=== PATIENT | male | born 1985 | race Caucasian/White ===

== ENCOUNTER 2020-06-05 09:38 | Emergency (ER) | payer BC, SELFPAY ==
[2020-06-05 09:45] VITALS: BP 140/84; PULSE 84; RESP 17; TEMP 36.7; O2SAT 100; BMI 30.7
--- NOTE | 2020-06-05 09:49 | XR_ITS ---
PROCEDURE: XR SHOULDER RT MIN 2V CLINICAL INDICATION: pain Pain with limited range of motion COMPARISON: XR CHEST 2V from 06/05/2020 FINDINGS: No fracture or dislocation. No lytic or blastic change. There is normal mineralization. The joint spaces are well-preserved. No significant degenerative/arthritic changes. No erosive changes evident. Other findings:The glenohumeral joint and acromioclavicular joint has an unremarkable appearance. There is minimal exostosis of the distal clavicle superiorly versus a a extra ossicle. Also noted is a moderate right-sided pneumothorax. Pneumothorax measures approximately 5 cm in IMPRESSION: 1. Negative shoulder. 2. Moderate right-sided pneumothorax. Dictated by: Kendall Muro MD 06/05/2020 12:02 Electronically signed by Kendall Muro MD in [place] 06/05/2020 12:02
--- NOTE | 2020-06-05 09:53 | HMH.EDGENADL ---
ED Disposition Clinical Impression: Spontaneous pneumothorax Disposition: Left Against Medical Advice Condition on Discharge: Fair Instructions: DI for Pneumothorax Additional Instructions: Return to the emergency room tomorrow for reevaluation and repeat chest x-ray. Return to the emergency room immediately if worsening shortness of breath, severe pain, or passing out. May take ibuprofen for pain. Avoid any strenuous activity. Referrals: PCP,No [Primary Care Provider] - Forms: Work/School Release - Critical Care Critical Care Time: No Attestation: On 06/05/20, the high probability of a clinically significant, sudden or life threatening deterioration of the following system(s) required my full and direct attention, intervention and personal management. The time I documented below is in addition to time spent performing reported procedures but includes the following listed in this critical care notation. Medical Decision Making - [place] Inquiry Pt receiving controlled substance: No Vital Signs: 06/05/20 09:45 06/05/20 10:01 06/05/20 10:33 Temperature 98.1 F Temperature Source Oral Pulse Rate Pulse Rate [Radial] 84 84 71 Respiratory Rate 17 Blood Pressure Blood Pressure [Right Arm] 140/84 135/77 128/82 Blood Pressure Mean [Right Arm] 102 96 97 Blood Pressure Source Blood Pressure Source [Right Arm] Automatic Cuff Automatic Cuff Automatic Cuff Blood Pressure Position Blood Pressure Position [Right Arm] Sitting Sitting Sitting 02 Sat by Pulse Oximetry 100 98 97 Oxygen Delivery Method Room Air Room Air Room Air 06/05/20 11:30 Temperature 98.3 F Temperature Source Oral Pulse Rate 85 Pulse Rate [Radial] Respiratory Rate 16 Blood Pressure 153/101 H Blood Pressure [Right Arm] Blood Pressure Mean [Right Arm] Blood Pressure Source Automatic Cuff Blood Pressure Source [Right Arm] Blood Pressure Position Sitting Blood Pressure Position [Right Arm] 02 Sat by Pulse Oximetry Oxygen Delivery Method Room Air - Radiology Data #1 Image(s): Chest, Shoulder Image Reviewed: Yes I reviewed the patient's radiology image Shoulder: No fracture or dislocation. No acute process. Chest: Right sided pneumothorax. Measures 3 cm at the base, 4 cm at the apex - Physician Consults Physician Consulted: Bladimir Time: 10:47 Reason -: Surgical Eval/Care Comment/Response: He agrees to come see the patient in the emergency room, but he is involved in his surgery and it will be a couple of hours. Hold patient in the emergency room. We have also called the patient's mother who is coming to the emergency room to see him and she may be able to talk to him and have him change his mind. Medical Decision Narrative: 10:55 AM: The patient refuses to stay in the emergency room and is going to sign out AGAINST MEDICAL ADVICE. He was advised that if his pneumothorax worsens it can be life-threatening (can cause ). 3 different persons in the emergency department explained to the patient that he could potentially from this condition if it were to progress. He understands this and still wants to sign out. He refuses chest tube placement. He refuses catheter placement, which would be less invasive than a thoracostomy tube. I also gave him the option of waiting a couple of hours to see Dr. Garrison, at that time a repeat chest x-ray could be performed to see if his pneumothorax has worsened at all. He even refuses this option and insists on leaving. His mother is present and is unable to convince him otherwise. Advised him to return tomorrow to the emergency room to have a repeat chest x-ray done and he is agreeable to that. General Adult HPI - General Chief complaint: PAIN Stated complaint: right shoulder pain Time Seen by Provider: 06/05/20 09:53 Mode of Arrival: Ambulatory Limitations: No Limitations Description of Symptoms (Recalled from ER Triage Doc. by RN): Woke up to right shoulder
[2020-06-05 10:01] VITALS: BP 135/77; PULSE 84; O2SAT 98
--- NOTE | 2020-06-05 10:02 | XR_ITS ---
PROCEDURE: XR CHEST 2V CLINICAL HISTORY: CP chest pain COMPARISON: No exams were available for comparison FINDINGS: The cardiomediastinal silhouette and pulmonary vascularity are within normal limits. There is a moderate-sized right pneumothorax measuring 4 cm in with at the lung apex. Pneumothorax involves at least 30 percent of the total lung volume. The upper mediastinum is slightly deviated toward the left however, the patient is slightly rotated. Right hemidiaphragm may be slightly flattened. No lobar consolidation or collapse. IMPRESSION: There is a moderate-sized right pneumothorax with suggestion of some minimal tension with minimal flattening of the right hemidiaphragm and questionable mediastinal deviation toward the left. The ER physician was aware of these findings. Dictated by: Kendall Muro MD 06/05/2020 12:05 Electronically signed by Kendall Muro MD in [place] 06/05/2020 12:05
[2020-06-05 10:33] VITALS: BP 128/82; PULSE 71; O2SAT 97
--- NOTE | 2020-06-05 10:37 | PC.NURSE ---
notified patient of results. Moving patient to room 2 at this time
--- NOTE | 2020-06-05 11:05 | PC.NURSE ---
notified pt of his condition and we moved patient to room 2. Pt kept saying that he couldn't believe this and he did not want any procedure done at this time. advised he would speak with the surgeon fire protection inspector to see if there was something else that could be done. Pt was adamant that he was not having any procedure done. We asked the patient to move over to room 2, he agreed, we had him stop at the nurses station so MD could show him his chest xray and explain everything again to him. Pt continued to shake his head and say this just doesn't happen, I'm not getting anything done I am leaving. spoke with Dr. Garrison who was in the OR and DR. Garrison advised he was in a case and would come down and see the patient when he finished. Pt mother came in at this time and we explained to the mother what was going on, mother was tearful and asking patient to please stay and have something done. Pt adamant that he was not staying here in the ER and would maybe come back this afternoon or tomorrow . He advised that if he started to get worse he would come back, Dr. Pereira asked the patient if he would at least come back to the ED tomorrow for revaluation and pt was agreeable to that but advised that he was leaving and would sign an AMA form because he did not want anything done. Explained to patient that this could potentially be a life threatening situation and could continue to get worse. Pt only response was ok . Mother still tearful trying to reason with patient about at least staying and waiting to speak with the surgeon. Pt advises he was not staying and wanted to sign the AMA form. Pt signed AMA form, put in discharge instructions for the patient and we explained to his mother what signs and symptoms she needed to watch for in the event the patient began to worsen. Also explained to patient what he needed to watch for and he advised he understood. Called OR and notified DR. Garrison that pt had signed out AMA at this time.
[2020-06-05 11:30] VITALS: BP 153/101; PULSE 85; RESP 16; TEMP 36.8; O2SAT 98
== END 2020-06-05 11:31 | disposition left against medical advice (07) ==
PROVIDERS: Emergency Provider Emergency Medicine
DX: J93.11 Primary spontaneous pneumothorax (principal)
CPT/HCPCS: 71046; 73030; 99282

== ENCOUNTER 2020-06-20 13:03 | Emergency (ER) | payer BC, SELFPAY ==
[2020-06-20 13:30] VITALS: BP 158/102; PULSE 83; RESP 15; TEMP 36.8; O2SAT 98; BMI 30.7
--- NOTE | 2020-06-20 13:33 | XR_ITS ---
PROCEDURE: XR CHEST 2V CLINICAL HISTORY: chest pain History of pneumothorax COMPARISON: CR XR CHEST 2V from 06/05/2020 FINDINGS: There is a small right apical pneumothorax with the apical pleural distance measuring approximately 7 mm. Previously this was 43 mm on 06/05/2020. The left lung is clear. Unremarkable cardiovascular structures. No acute bony abnormalities. IMPRESSION: Small right apical pneumothorax Mariela notified of the above findings in the ER 06/20/2020 at 2:04 p.m. Kendall Blanc MD 06/20/2020 14:04 Kendall Muro MD in [place] 06/20/2020 14:04
[2020-06-20 14:47] VITALS: BP 147/110; PULSE 78; O2SAT 99
--- NOTE | 2020-06-20 16:58 | HMH.EDRECH ---
ED Disposition Clinical Impression: Pneumothorax Qualifiers: Pneumothorax type: spontaneous, primary Qualified Code(s): J93.11 - Primary spontaneous pneumothorax Disposition: Home, Self-Care Condition on Discharge: Fair Instructions: DI for Pneumothorax Additional Instructions: We note an improved CXR with Apical pleural distance of 7 mm as against 43 mm previously. you will be discharged home to rest for 2 more days and comeback for a repeat chest Xray Referrals: PCP,No [Primary Care Provider] - Time of Disposition: 17:08 - Critical Care Critical Care Time: No Attestation: On 06/20/20, the high probability of a clinically significant, sudden or life threatening deterioration of the following system(s) required my full and direct attention, intervention and personal management. The time I documented below is in addition to time spent performing reported procedures but includes the following listed in this critical care notation. Medical Decision Making - Medical Records Medical records reviewed: Yes: I reviewed the patient's medical records. MR Comment: Pt reports he was here 2 weeks ago for right sided pain, was told he had a collapsed lung, and refused a chest tube at that time. Reports he was told to come back for a followup chest xray. Much improved CXR with Apical pleural distance of 7 mm as against 43 mm previously. Patient will be discharged home to rest for 2 more days and comeback for a repeat chest Xray - [place] Inquiry Pt receiving controlled substance: No Vital Signs: 06/20/20 13:30 06/20/20 14:47 Temperature 98.3 F Temperature Source Oral Pulse Rate [Right Brachial] 83 78 Respiratory Rate 15 Blood Pressure [Right Arm] 158/102 H 147/110 H Blood Pressure Mean [Right Arm] 120 122 Blood Pressure Source [Right Arm] Automatic Cuff Automatic Cuff Blood Pressure Position [Right Arm] Sitting Supine 02 Sat by Pulse Oximetry 98 99 Oxygen Delivery Method Room Air Room Air Recheck HPI - General Chief Complaint: Recheck/Abnormal Lab/Rx Stated Complaint: xray Time Seen by Provider: 06/20/20 15:58 Mode of Arrival: Ambulatory Source of Information: Patient Limitations: No Limitations Description of Symptoms (Recalled from ER Triage Doc. by RN): Pt reports he was here 2 weeks ago for right sided pain, was told he had a collapsed lung, and refused a chest tube at that time. Reports he was told to come back for a followup chest xray. - History of Present Illness HPI narrative: Pt reports he was here 2 weeks ago for right sided pain, was told he had a collapsed lung, and refused a chest tube at that time. Reports he was told to come back for a followup chest xray. MD complaint: other Onset/Timin Initial visit (ago): week(s) Initial visit for: other Description of abnormal result: small pneumothorax Symptoms since prior visit: no new symptoms, improved Associated symptoms: none - Related Data Home Medications Medication Instructions Recorded Confirmed No Known Home Medications 06/20/20 06/20/20 Allergies Allergy/AdvReac Type Severity Reaction Status Date / Time No Known Allergies Allergy Verified 06/20/20 13:35 [facility] History - Hepatitis A Screen Drug use history?: No High risk sexual behaviors?: No History of sexually transmitted infection?: No Currently employed?: No Childcare worker?: No Do you have indoor plumbing?: Yes Do you have electricity?: Yes Attestation statement:: This patient has been screened for Hepatitis A risk factors. I have reviewed the patient's past medical history: Yes Amputation: No Fractures: No - Social History Smoking Status: Current every day smoker Tobacco Type: smokeless tobacco # Packs/Day (cigarettes): 1 Alcohol Intake: never Occupational Status: employed ROS Obtained: Yes All systems reviewed & no additional complaints Physical Exam - General General appearance: alert, in no apparent distress - Head Head exam: atra
[2020-06-20 17:15] VITALS: BP 147/110; PULSE 78; RESP 15; TEMP 36.8; O2SAT 99
== END 2020-06-20 17:16 | disposition home or self-care (01) ==
PROVIDERS: Emergency Provider Emergency Medicine
DX: J93.11 Primary spontaneous pneumothorax (principal); F17.210 Nicotine dependence, cigarettes, uncomplicated
CPT/HCPCS: 71046; 99282